=== PATIENT | male | born 1985 | race African-American/Black ===

== ENCOUNTER 2019-09-16 00:56 | Emergency (ER) | payer SELFPAY ==
[~2019-09-16] VITALS: Ht 193 cm; Wt 95.3 kg
[2019-09-16 01:00] VITALS: BP 140/78
[2019-09-16] MEDS ORDERED: HYDROCODONE/APAP 5/325MG 1 EACH TABLET PO ONE (01:00)
[2019-09-16] MEDS ORDERED: HYDROCODONE/APAP 5/325MG 1 EACH TABLET ONE (01:02)
--- NOTE | 2019-09-16 01:05 | NUR ---
XRAY AT BEDSIDE
--- NOTE | 2019-09-16 02:16 | NUR ---
Patient discharged to home in stable condition. Written and verbal after care instructions given. Patient verbalizes understanding of instruction.
== END 2019-09-16 02:28 | disposition home or self-care (01) ==
LOC: ER 00:56
DX: S63.591A Other specified sprain of right wrist, initial encounter (principal); V09.9XXA Pedestrian injured in unspecified transport accident, initial encounter; Y93.89 Activity, other specified; Y92.488 Other paved roadways as the place of occurrence of the external cause; Y99.8 Other external cause status
CPT/HCPCS: 73110

== ENCOUNTER 2023-12-03 13:33 | Emergency (ER) | payer MEDICAID ==
[~2023-12-03] VITALS: Ht 193 cm; Wt 93.0 kg
[2023-12-03] MEDS ORDERED: ACETAMINOPHEN ES 500 MG TABLET ONE (14:10)
[2023-12-03] MEDS: ACETAMINOPHEN ES 500 MG TABLET PO ONE (14:11)
[2023-12-03] MEDS ORDERED: IBUPROFEN 600 MG TABLET ONE (15:03)
[2023-12-03] MEDS: IBUPROFEN 600 MG TABLET PO ONE (15:05)
[2023-12-03] MEDS ORDERED: IBUP-1953 PO (15:41)
[2023-12-03 16:37] VITALS: BP 132/89; TEMP 98.4; O2SAT 99
== END 2023-12-03 16:38 | disposition home or self-care (01) ==
LOC: ER 13:38
DX: S89.81XA Other specified injuries of right lower leg, initial encounter (principal); X58.XXXA Exposure to other specified factors, initial encounter; Y93.67 Activity, basketball; Y92.39 Other specified sports and athletic area as the place of occurrence of the external cause; Y99.8 Other external cause status
CPT/HCPCS: 73564-TC